=== PATIENT | female | born 1970 | race Caucasian/White ===

== ENCOUNTER 2018-12-07 17:53 | Outpatient (REF) | payer BC, SELFPAY ==
--- NOTE | 2018-12-07 14:50 | PAPFT_PTH ---
PATIENT: Sara Brown LOC: [facility] U#:[id number] AGE/SX: 48/F ROOM: RE12/07/[address]: Almaz Carr NP : 1970 BED: DIS: 12/07/2018 SPEC #: [id number] RECD: 12/07/18 18:31 STATUS: DEANNE MIRELES #: [id number] CHERISE: 12/07/18 14:[address]: Almaz Carr NP DEPT: [facility] Cytology RECD BY: Malia Castellanos ENTERED: 12/07/18 18:31 SP TYPE: PAPFT DESMOND DR: Unknown,Unknown Tissues: 1 - CX/ENDOCX FOR PAP SMEARS Procedures: PAP THIN PREP/[facility] Screening HPV DNA PROBE Comments: [id number]
== END 2018-12-07 18:13 ==
LOC: LBN 17:53
PROVIDERS: Visit Provider Nurse Practitioner Women's Health
DX: Z12.4 Encounter for screening for malignant neoplasm of cervix (principal); Z11.51 Encounter for screening for human papillomavirus (HPV)
CPT/HCPCS: 88142; 87624